=== PATIENT | male | born 1990 ===

== ENCOUNTER 2017-03-21 14:35 | Emergency (ER) | payer BC, OTHER ==
[2017-03-21 15:27] VITALS: RESP 16; TEMP 97.8; O2SAT 98; BMI 34.8
[2017-03-21 17:03] LABS: URINE BILIRUBIN NEGATIVE (NEGATIVE); URINE BLOOD LARGE (NEGATIVE); URINE GLUCOSE (UA) NEGATIVE (NEGATIVE); URINE LEUKOCYTE ESTERASE NEGATIVE Leu/uL (NEGATIVE); URINE NITRATE NEGATIVE (NEGATIVE); URINE PROTEIN TRACE mg/dL (<30 mg/dL); URINE UROBILINOGEN 0.2 E.U./dL (<1 E.U./dL)
[2017-03-21 17:26] LABS: URINE APPEARANCE SL CLOUDY (CLEAR); URINE COLOR YELLOW (YELLOW)
[2017-03-21 17:27] LABS: URINE RBC 15 - 20 /hpf (0-2); URINE WBC 0 - 2 /hpf (0-6)
[2017-03-21] MEDS ORDERED: Sodium Chloride 0.9% 500 ML IV STA (17:27)
[2017-03-21 17:28] LABS: URINE BACTERIA OCC (NEG)
[2017-03-21 18:06] LABS: BASO # 0.01 K/mm3 (0.0-2.0); BASO % 0.1 % (0.0-3.0); EOS % 0.1 % (1.5-5.0); GRAN # 13.39 (1.4-6.5); GRAN % 84.8 % (50.0-68.0); HEMOGLOBIN 15.3 gm/dL (14.0-18.0); LYMPH # 1.6 (1.2-3.4); LYMPH % 10.4 % (22.0-35.0); MEAN CORPUSCULAR HEMOGLOBIN 29.4 pg (25.0-35.0); MEAN CORPUSCULAR HGB CONC 34.2 g/dl (31.0-37.0); MEAN PLATELET VOLUME 10.6 fl (7.0-11.0); MONO # 0.7 (0.1-0.6); MONO % 4.6 % (1.0-6.0); PLATELET COUNT 223 10^3/uL (120.0-450.0); RBC 5.21 10^6/uL (3.5-6.1); RED CELL DISTRIBUTION WIDTH 13.9 % (11.5-14.5); WHITE BLOOD COUNT 15.8 10^3/ul (4.5-11.0)
[2017-03-21 18:14] LABS: ALB/GLOB RATIO 1.4 (1.1-1.8); ALBUMIN 4.6 g/dL (3.0-4.8); ALT/SGPT 79 U/L (7-56); AST/SGOT 40 U/L (15-59); BLOOD UREA NITROGEN 13 mg/dL (7-21); CALCIUM 9.9 mg/dL (8.4-10.5); GFR AFRICAN-AMERICAN > 60; GFR NON-AFRICAN AMERICAN > 60
--- NOTE | 2017-03-21 18:27 | ED PDOC ---
Arrival/HPI - General Chief Complaint: Back Pain Time Seen by Provider: 03/21/17 16:11 Historian: Patient, Family - History of Present Illness Narrative History of Present Illness (Text): 03/21/17 20:12 Patient c/o right flank pain started from this morning, associated with nausea and 1 episode of vomiting. Patient denies any injury. Symptom Course: Unchanged Quality: Throbbing Past Medical History - Provider Review Nursing Documentation Reviewed: Yes - Travel History Have you recently traveled outside [place] w/in the past 3 mons?: No - Past History Past History: No Previous - Infectious Disease Hx of Infectious Diseases: None - Tetanus Immunization Tetanus Immunization: Up to Date - Past Medical History Past Medical History: No Previous - Psychiatric Hx Psychophysiologic Disorder: No Hx Depression: No Hx Emotional Abuse: No Hx Physical Abuse: No Hx Substance Use: Yes - Past Surgical History Past Surgical History: No Previous - Suicidal Assessment Feels Threatened In Home Enviroment: No Family/Social History - Physician Review Nursing Documentation Reviewed: Yes Family/Social History: Unknown Family HX Smoking Status: Never Smoked Hx Alcohol Use: No Hx Substance Use: Yes Substance used: marijuana Hx Substance Use Treatment: No Allergies/Home Meds Allergies/Adverse Reactions: Allergies No Known Allergies Allergy (Verified 07/19/14 12:15) Review of Systems - Physician Review All systems were reviewed & negative as marked: Yes - Review of Systems Gastrointestinal: Nausea, Vomiting, Other (flank pain) Physical Exam Vital Signs Temp Pulse Resp BP Pulse Ox 03/21/17 19:45 52 L 16 107/65 98 03/21/17 15:27 97.8 F 67 16 123/70 98 03/21/17 15:26 97.8 F 67 16 123/70 98 Temperature: Afebrile Blood Pressure: Normal Pulse: Regular Respiratory Rate: Normal Appearance: Positive for: Well-Appearing, Uncomfortable Pain Distress: Moderate Mental Status: Positive for: Alert and Oriented X 3 - Systems Exam Head: Present: Atraumatic, Normocephalic Neck: Present: Normal Range of Motion Respiratory/Chest: Present: Clear to Auscultation, Good Air Exchange Cardiovascular: Present: Regular Rate and Rhythm, Normal S1, S2 Abdomen: Present: Normal Bowel Sounds. No: Tenderness, Distention, Peritoneal Signs, Guarding Back: Present: Normal Inspection. No: CVA Tenderness, Midline Tenderness, Paraspinal Tenderness Upper Extremity: Present: Normal Inspection, Normal ROM. No: Edema Lower Extremity: Present: Normal Inspection. No: Edema Neurological: Present: GCS=15, Motor Func Grossly Intact, Normal Sensory Function Psychiatric: Present: Alert, Oriented x 3, Normal Insight, Normal Concentration Medical Decision Making ED Course and Treatment: 03/21/17 20:18 Patient was treated with IVF, Toradol IV, Zofran, Cipro and Flomax IV. On re- evaluation he feels better and is stable to be d/c home with bUrologist follow up. - Lab Interpretations Lab Results: 03/21/17 05:50 03/21/17 05:50 Lab Results 03/21/17 16:30: Urine Color Yellow, Urine Appearance Sl cloudy, Urine pH 6.0, Ur Specific [place] >= 1.030, Urine Protein Trace H, Urine Glucose (UA) Negative , Urine Ketones Negative, Urine Blood Large H, Urine Nitrate Negative, Urine Bilirubin Negative, Urine Urobilinogen 0.2, Ur Leukocyte Esterase Negative, Urine RBC 15 - 20, Urine WBC 0 - 2, Urine Bacteria Occ 03/21/17 05:50: Sodium 142, Potassium 4.6, Chloride 102, Carbon Dioxide 29, Anion Gap 16, BUN 13, Creatinine 0.7, Est GFR ( Amer) > 60, Est GFR (Non- Af Amer) > 60, Random Glucose 125 H, Calcium 9.9, Total Bilirubin 0.6, AST 40, ALT 79 H, Alkaline Phosphatase 71, Total Protein 7.8, Albumin 4.6, Globulin 3.3 , Albumin/Globulin Ratio 1.4 03/21/17 05:50: WBC 15.8 H, RBC 5.21, Hgb 15.3, Hct 44.8, MCV 86.0, MCH 29.4, MCHC 34.2, RDW 13.9, Plt Count 223, MPV 10.6, Gran % 84.8 H, Lymph % (Auto) 10.4 L, [place] % (Auto) 4.6, Eos % (Auto) 0.1 L, Baso % (Auto) 0.1, Gran # 13.39 H , Lymph # 1.6, Mobile # 0.7 H, Eos # 0.0, Baso # 0.01 - RAD Interpretation Narrative RAD Interpretations (Text): 03/21/17 20:17 Accession No. : [id number] Patient Name / ID : RENAY MORALES / [id number] Exam Date : 03/21/2017 17:58:21 ( Approved ) Study Comment : Sex / Age : M / 26Y Creator : SONIA ROBLEDO MD Dictator : SONIA ROBLEDO MD Wheat Buyer : Jewelry Making Instructor : SONIA ROBLEDO MD Approver2 : Report Date : 03/21/2017 18:28:29 My Comment : PROCEDURE: CT Abdomen and Pelvis without intravenous contrast HISTORY: right flank pain/hematuria COMPARISON: None. TECHNIQUE: CT scan of the abdomen and pelvis was performed without administration of intravenous contrast. Oral contrast was not administered. Coronal and sagittal reformatted images were obtained. Radiation dose: Total exam DLP = 1271.82 MGy-cm. This CT exam was performed using one or more of the following dose reduction techniques: Automated exposure control, adjustment of the mA and/or kV according to patient size, and/or use of iterative reconstruction technique. FINDINGS: LOWER THORAX: The lung bases are clear. LIVER: The liver is normal in size. No gross lesion or ductal dilatation. GALLBLADDER AND BILE DUCTS: There are no calcified gallstones. PANCREAS: The pancreas is normal in size. No ductal dilatation or calcifications. SPLEEN: There is borderline splenomegaly. ADRENALS: Both adrenal glands are normal in size without discrete nodule. KIDNEYS AND URETERS: The right kidney is normal in size. There is moderate right hydronephrosis and severe distention of the right renal pelvis. There is mild diffuse dilatation of the right ureteral and a 3 mm obstructing stone in the distal ureter in the right hemipelvis. There are punctate nonobstructing stones in the right kidney. The left kidney is normal in size without hydronephrosis or nephrolithiasis. The left ureter is not dilated. VASCULATURE: No aortic aneurysm. BOWEL: The small bowel loops are normal in caliber. No evidence of bowel obstruction. The colon is unremarkable. APPENDIX: Normal appendix. PERITONEUM: No free fluid. No free air. LYMPH NODES: No enlarged lymph nodes. BLADDER: Decompressed. REPRODUCTIVE: Unremarkable. BONES: No acute fracture. Within normal limits for the patient's age. OTHER FINDINGS: There are bilateral small fat containing inguinal hernias. IMPRESSION: 1. Moderate right obstructive uropathy resulting from a 3 mm stone in the right distal ureter in the hemipelvis. 2. Punctate nonobstructing stones in the right kidney. 3. Severe distention of the right renal pelvis could be partly related to distal obstructive uropathy however underlying partial UPJ obstruction is also a consideration. Radiology Orders: 03/21/17 17:27 ABD & PELVIS W/O PO OR IV CONT [CT] Stat Jr. Systems Administrator: Radiologist - Medication Orders Current Medication Orders: Discontinued Medications Ciprofloxacin (Cipro) 500 mg PO STAT STA PRN Reason: Protocol Stop: 03/21/17 18:49 Last Admin: 03/21/17 19:14 Dose: 500 mg Sodium Chloride (Sodium Chloride 0.9%) 500 mls @ 1,000 mls/hr IV .Q30M STA Stop: 03/21/17 17:56 Last Admin: 03/21/17 18:31 Dose: 1,000 mls/hr Ketorolac Tromethamine (Toradol) 30 mg IVP STAT STA Stop: 03/21/17 17:28 Last Admin: 03/21/17 18:31 Dose: 30 mg Ondansetron HCl (Zofran Inj) 4 mg IVP STAT STA Stop: 03/21/17 17:28 Last Admin: 03/21/17 18:32 Dose: 4 mg Tamsulosin HCl (Flomax) 0.4 mg PO STAT STA Stop: 03/21/17 18:49 Last Admin: 03/21/17 19:14 Dose: 0.4 mg Disposition/Present on Arrival - Present on Arrival Any Indicators Present on Arrival: No History of DVT/PE: No History of Uncontrolled Diabetes: No Urinary Catheter: No History of Decub. Ulcer: No History Surgical Site Infection Following: None - Disposition Have Diagnosis and Disposition been Completed?: Yes Diagnosis: Renal colic on right side Disposition: HOME/ ROUTINE Disposition Time: 19:15 Patient Plan: Discharge Condition: IMPROVED Discharge Instructions (ExitCare): Renal Colic (ED) Additional Instructions: Follow up with Urologist within 2-3 days. Return to ED if feel worse. Prescriptions: Ciprofloxacin [Cipro] 1 tab PO BID #10 tab Tamsulosin [Flomax] 0.4 mg PO DAILY #7 cap oxyCODONE/Acetaminophen [Percocet 5/325 mg Tab] 1 ea PO .Q4-6H #20 tab Ondansetron [Zofran Odt] 1 - 2 tab PO .Q4-6H PRN #20 odt PRN Reason: Nausea/Vomiting Referrals: Kelley Levi MD [Staff Provider] - Follow up with primary
--- NOTE | 2017-03-21 18:30 | CT ---
PROCEDURE: CT Abdomen and Pelvis without intravenous contrast HISTORY: right flank pain/hematuria COMPARISON: None. TECHNIQUE: CT scan of the abdomen and pelvis was performed without administration of intravenous contrast. Oral contrast was not administered. Coronal and sagittal reformatted images were obtained. Radiation dose: Total exam DLP = 1271.82 MGy-cm. This CT exam was performed using one or more of the following dose reduction techniques: Automated exposure control, adjustment of the mA and/or kV according to patient size, and/or use of iterative reconstruction technique. FINDINGS: LOWER THORAX: The lung bases are clear. LIVER: The liver is normal in size. No gross lesion or ductal dilatation. GALLBLADDER AND BILE DUCTS: There are no calcified gallstones. PANCREAS: The pancreas is normal in size. No ductal dilatation or calcifications. SPLEEN: There is borderline splenomegaly. ADRENALS: Both adrenal glands are normal in size without discrete nodule. KIDNEYS AND URETERS: The right kidney is normal in size. There is moderate right hydronephrosis and severe distention of the right renal pelvis. There is mild diffuse dilatation of the right ureteral and a 3 mm obstructing stone in the distal ureter in the right hemipelvis. There are punctate nonobstructing stones in the right kidney. The left kidney is normal in size without hydronephrosis or nephrolithiasis. The left ureter is not dilated. VASCULATURE: No aortic aneurysm. BOWEL: The small bowel loops are normal in caliber. No evidence of bowel obstruction. The colon is unremarkable. APPENDIX: Normal appendix. PERITONEUM: No free fluid. No free air. LYMPH NODES: No enlarged lymph nodes. BLADDER: Decompressed. REPRODUCTIVE: Unremarkable. BONES: No acute fracture. Within normal limits for the patient's age. OTHER FINDINGS: There are bilateral small fat containing inguinal hernias. IMPRESSION: 1. Moderate right obstructive uropathy resulting from a 3 mm stone in the right distal ureter in the hemipelvis. 2. Punctate nonobstructing stones in the right kidney. 3. Severe distention of the right renal pelvis could be partly related to distal obstructive uropathy however underlying partial UPJ obstruction is also a consideration.
[2017-03-21 19:47] VITALS: BP 107/65; PULSE 52
== END 2017-03-21 19:46 | disposition home or self-care (01) ==
LOC: ED 14:35
DX: N20.0 Calculus of kidney (principal)
CPT/HCPCS: 74176; 80053; 81001; 85025; 96374; 96375; 99283; J1885; J2405; J7040